=== PATIENT | female | born 1945 | race Two or more races ===

== ENCOUNTER 2016-11-22 08:50 | Outpatient (RCR) | payer MEDICARE | END 2016-12-01 | disposition home or self-care (01) | LOC: EDUNIT# → PTY 08:50 | DX: M75.01 Adhesive capsulitis of right shoulder (principal) | CPT/HCPCS: 97110; 97140; 97161; G0283; G8984; G8985 ==

== ENCOUNTER 2016-12-20 09:00 | Outpatient (RCR) | payer MEDICARE | END 2017-01-01 | disposition home or self-care (01) | LOC: PTY 09:00 | DX: M75.01 Adhesive capsulitis of right shoulder (principal) | CPT/HCPCS: 97110; 97140; G0283; G8979; G8985; G8986 ==